=== PATIENT | male | born 1950 | race Two or more races ===

== ENCOUNTER 2018-06-16 10:36 | Outpatient (CLI) | payer OTHER ==
[~2018-06-16 10:36] MED LIST: NABUMETONE500 MG PO; PERCOCET 5/3251 TAB PO
== END 2018-06-16 16:25 | disposition home or self-care (01) ==
LOC: RAD 501 10:36
DX: M25.511 Pain in right shoulder (principal)

== ENCOUNTER 2018-09-07 16:10 | Outpatient (CLI) | payer OTHER | END 2018-09-07 16:26 | disposition home or self-care (01) | LOC: LAB 16:10 | DX: R97.20 Elevated prostate specific antigen [PSA] (principal) ==

== ENCOUNTER 2018-09-22 08:10 | Outpatient (CLI) | payer OTHER | END 2018-09-22 08:20 | disposition home or self-care (01) | LOC: SONOGRAMA 08:10 | DX: R97.20 Elevated prostate specific antigen [PSA] (principal) ==

== ENCOUNTER 2018-09-28 15:27 | Outpatient (CLI) | payer OTHER | END 2018-09-28 17:00 | disposition home or self-care (01) | LOC: TOM 15:27 | DX: C61 Malignant neoplasm of prostate (principal) ==

== ENCOUNTER 2018-10-09 08:24 | Outpatient (CLI) | payer OTHER | END 2018-10-09 10:00 | disposition home or self-care (01) | LOC: NUCLEAR 08:24 | DX: C61 Malignant neoplasm of prostate (principal); Z08 Encounter for follow-up examination after completed treatment for malignant neoplasm | CPT/HCPCS: 78306; 78320; A9503 ==

== ENCOUNTER 2020-02-15 09:19 | Outpatient (CLI) | payer OTHER | END 2020-02-15 09:35 | disposition home or self-care (01) | LOC: TOM 09:19 | PROVIDERS: ATTEND Urology | DX: C61 Malignant neoplasm of prostate (principal); K64.8 Other hemorrhoids | CPT/HCPCS: 74177; Q9965 ==

== ENCOUNTER 2020-02-21 08:48 | Outpatient (CLI) | payer OTHER | END 2020-02-21 08:52 | disposition home or self-care (01) | LOC: NUCLEAR 08:48 | PROVIDERS: ATTEND Urology | DX: C61 Malignant neoplasm of prostate (principal); K64.8 Other hemorrhoids | CPT/HCPCS: 78803; A9503 ==

== ENCOUNTER 2020-04-22 06:15 | Day surgery (SDC) | payer OTHER ==
[2020-04-22] MEDS ORDERED: DICLOFENAC SODI75 MG PO (08:36)
[2020-04-22] MEDS ORDERED: RECTICARE30 GM TOP (08:37)
== END 2020-04-22 09:40 | disposition home or self-care (01) ==
LOC: AMB-ENDOS 06:15
PROVIDERS: ATTEND Surgery
DX: K62.89 Other specified diseases of anus and rectum (principal); K64.8 Other hemorrhoids; Z20.828 Contact with and (suspected) exposure to other viral communicable diseases

== ENCOUNTER 2021-05-25 08:25 | Outpatient (CLI) | payer OTHER ==
[~2021-05-25 08:25] MED LIST changes: +DICLOFENAC SODI75 MG PO; +RECTICARE30 GM TOP
== END 2021-05-25 08:44 | disposition home or self-care (01) ==
LOC: TOM 08:25
DX: K44.9 Diaphragmatic hernia without obstruction or gangrene (principal); K57.90 Diverticulosis of intestine, part unspecified, without perforation or abscess without bleeding; C61 Malignant neoplasm of prostate; Q44.6 Cystic disease of liver; K80.80 Other cholelithiasis without obstruction; Q61.02 Congenital multiple renal cysts
CPT/HCPCS: 74178; Q9965

== ENCOUNTER 2021-05-25 14:30 | Outpatient (CLI) | payer OTHER | END 2021-05-25 15:00 | disposition home or self-care (01) | LOC: PPH VACUNA 14:30 | PROVIDERS: ATTEND Emergency Medicine Pediatric Emergency Medicine | DX: Z23 Encounter for immunization (principal) ==

== ENCOUNTER 2021-06-11 08:15 | Outpatient (CLI) | payer OTHER | END 2021-06-11 08:19 | disposition home or self-care (01) | LOC: NUCLEAR 08:15 | PROVIDERS: ATTEND Urology | DX: C61 Malignant neoplasm of prostate (principal) | CPT/HCPCS: 78816; A9552 ==

== ENCOUNTER 2021-06-22 08:36 | Outpatient (CLI) | payer OTHER | END 2021-06-22 08:37 | disposition home or self-care (01) | LOC: NUCLEAR 08:36 | PROVIDERS: ATTEND Urology | DX: C61 Malignant neoplasm of prostate (principal) | CPT/HCPCS: 78803; A9503 ==

== ENCOUNTER 2023-02-10 07:52 | Outpatient (CLI) | payer OTHER | END 2023-02-10 07:54 | disposition home or self-care (01) | LOC: NUCLEAR 07:52 | PROVIDERS: ATTEND Urology | DX: C61 Malignant neoplasm of prostate (principal) | CPT/HCPCS: 78815; A9552 ==

== ENCOUNTER 2023-02-22 08:11 | Outpatient (CLI) | payer OTHER | END 2023-02-22 08:12 | disposition home or self-care (01) | LOC: NUCLEAR 08:11 | PROVIDERS: ATTEND Urology | DX: C61 Malignant neoplasm of prostate (principal) | CPT/HCPCS: 78306; 78803; A9503 ==